=== PATIENT | male | born 1985 | race Asian ===

== ENCOUNTER 2017-05-11 14:22 | Emergency (ER) | payer BC ==
[2017-05-11 16:03] VITALS: BP 129/61
== END 2017-05-11 16:33 | disposition home or self-care (01) ==
LOC: ED 14:22
DX: S16.1XXA Strain of muscle, fascia and tendon at neck level, initial encounter (principal); V49.49XA Driver injured in collision with other motor vehicles in traffic accident, initial encounter; Y93.I9 Activity, other involving external motion; Y99.8 Other external cause status; Y92.89 Other specified places as the place of occurrence of the external cause